=== PATIENT | male | born 1930 | race Caucasian/White ===

== ENCOUNTER 2016-12-10 21:34 | Inpatient (IN) | payer OTHER ==
[~2016-12-10] VITALS: Ht 180.3 cm; Wt 62.5 kg
[~2016-12-10 21:34] MED LIST: ADVAIR HFA120 INHALA IH; ALBUTEROL SULF8.5 GM IH; ALBUTEROL2.5 MG/3 M IH; AMBIEN5 MG PO; ANORO ELLIPTA1 EACH IH; AZITHROMYCIN250 MG PO; BENADRYL25 MG PO; CEFUROXIME500 MG PO; CEPHALEXIN500 MG PO; COUMADIN2.5 MG PO; COUMADIN5 MG PO; CYANOCOBALAM1000 MCG PO; DESOXIMETASONE TP; FOLIC ACID1 MG PO; FUROSEMIDE20 MG PO; IMDUR30 MG PO; IMDUR60 MG PO; ISOSORBIDE DINI30 MG; ISOSORBIDE DINI30 MG PO; LABETALOL HCL100 MG; LABETALOL HCL100 MG PO; LABETALOL HCL200 MG PO; LEVAQUIN500 MG PO; Lasix PO; Levaquin PO; NORVASC2.5 MG PO; Normodyne,Trandate PO; PRADAXA75 MG; PRADAXA75 MG PO; PREDNISONE10 MG PO; PROTONIX40 MG PO; PROVENTIL HFA6.7 GM IH; Protonix PO; SPIRIVA1 INHALATI; SPIRIVA1 INHALATI IH; Tylenol PM PO; ULORIC40 MG PO; VALISONE TP; VIT D3; VITAMIN B12 PO; VITAMIN B12-FO1 EACH PO; VITAMIN D1000 UNIT PO; VITAMIN D31000 UNI2 PO; WARFARIN PO; WARFARIN SODIUM5 MG PO; ZOLPIDEM TARTRAT5 MG PO; Zocor PO; [UNRECOGNIZED DRUG - CODE]
[2016-12-10 22:10] LABS: EOSINOPHIL COUNT 0.3 K/uL (0-0.3); HEMATOCRIT 35.8 % (38.0-50.0); IMMATURE GRANULOCYTE (%) 0.2 % (0.0-0.7); IMMATURE GRANULOCYTE COUNT 0.2 K/uL; LYMPHOCYTE COUNT 0.7 K/uL (1.0-2.8); MCHC 33.2 G/DL (30.0-36.0); MCV 93.2 FL (86-99); MEAN PLAT.VOLUME 9.9 uM^3 (9.0-12.4); MONOCYTE (%) 8.4 % (3-12); MONOCYTE COUNT 0.7 K/uL (0-0.8); NEUTROPHIL (%) 79.4 % (45-76); NEUTROPHIL COUNT 6.6 K/uL (1.8-6.4); PLATELET COUNT 186 K/uL (156-360); RBC DIS.WIDTH-CV 13.3 % (11.8-14.6); RBC DIS.WIDTH-SD 43.3 % (39-53); RED BLOOD COUNT 3.84 M/uL (4.00-5.50); WHITE BLOOD COUNT 8.3 K/uL (4.1-10.2)
[2016-12-10 22:21] LABS: INTER. NORMALIZED RATIO 1.5; PTT 48.5 (25-32)
[2016-12-10 22:26] LABS: CHLORIDE 105 mEq/L (99-109); POTASSIUM 4.8 mEq/L (3.7-5.4); SODIUM 140 mEq/L (136-147)
[2016-12-10 22:27] LABS: MAGNESIUM 1.5 mg/dL (1.3-2.7)
[2016-12-10 22:28] LABS: GLUCOSE 109 mg/dL (70-99)
[2016-12-10 22:29] LABS: ANION GAP 12 MEQ/L (2-14)
[2016-12-10 22:32] LABS: GFR ESTIMATE (CALCULATED) 36 mL/min/; TROP-I INTERPRETATION NEGATIVE; TROPONIN-I 0.02 ng/mL (0.0-0.30); UREA NITROGEN (BUN) 49 mg/dL (9-23)
[2016-12-11] VITALS (9 sets, daily range): BP systolic 147–189; BP diastolic 68–86
[2016-12-11] MEDS ORDERED: PROAIR HFA8.5 GM IH (00:27)
[2016-12-11] MEDS ORDERED: DUONEB 2.5-0.5 M3 ML AEROSOL (00:27)
[2016-12-11 06:11] LABS: HEMATOCRIT 36.9 % (38.0-50.0); MCH 30.3 PG (29.0-34.0); MCHC 32.2 G/DL (30.0-36.0); MCV 93.9 FL (86-99); MEAN PLAT.VOLUME 10.2 uM^3 (9.0-12.4); PLATELET COUNT 184 K/uL (156-360); RBC DIS.WIDTH-CV 13.4 % (11.8-14.6); RBC DIS.WIDTH-SD 46.2 % (39-53); RED BLOOD COUNT 3.93 M/uL (4.00-5.50)
[2016-12-11 06:24] LABS: WHITE BLOOD COUNT 3.8 K/uL (4.1-10.2)
[2016-12-11 06:30] LABS: CHLORIDE 102 MEQ/L (99-109); GFR ESTIMATE (CALCULATED) 38 mL/min/; GLUCOSE 150 mg/dL (70-99); POTASSIUM 4.3 MEQ/L (3.7-5.4); SAMPLE HEMOLYSIS CHECK 0; SAMPLE ICTERIC CHECK 0; SAMPLE LIPEMIA CHECK 0; SODIUM 136 MEQ/L (136-147); UREA NITROGEN (BUN) 48 mg/dL (9-23)
[2016-12-11 06:31] LABS: ANION GAP 11 MEQ/L (2-14)
[2016-12-11 06:36] LABS: INTER. NORMALIZED RATIO 1.6; PROTHROMBIN TIME 16.2 (9.2-11.2)
[2016-12-11 11:38] LABS: INFLUENZA A VIRAL ANTIGEN NEGATIVE; INFLUENZA B VIRAL ANTIGEN NEGATIVE
[2016-12-12] VITALS (23 sets, daily range): BP systolic 89–224; BP diastolic 51–105
[2016-12-12 05:05] LABS: BASE EXCESS -1.3 mEq/L (-3 to +3); BICARBONATE 24.3 mEq/L (22-26); CARBOXY HGB 0.2 % (0-5); COMMENTS - BLOOD GASES C+A+; DEVICE NC; METHEMOGLOBIN 0.4 % (0-1.5); O2 FLOW 2 L/MIN; PCO2 43 mm Hg (35-45); PO2 67 mm Hg (80-100); SITE RR; pH 7.36 (7.35-7.45)
[2016-12-12 05:47] LABS: HEMATOCRIT 40.9 % (38.0-50.0); MCHC 34.2 G/DL (30.0-36.0); MCV 93.6 FL (86-99); MEAN PLAT.VOLUME 10.8 uM^3 (9.0-12.4); RBC DIS.WIDTH-CV 13.4 % (11.8-14.6); RBC DIS.WIDTH-SD 45.9 % (39-53); RED BLOOD COUNT 4.37 M/uL (4.00-5.50)
[2016-12-12 05:53] LABS: PLATELET COUNT 261 K/uL (156-360); WHITE BLOOD COUNT 11.3 K/uL (4.1-10.2)
[2016-12-12 05:57] LABS: ANION GAP 13 MEQ/L (2-14); CHLORIDE 103 MEQ/L (99-109); POTASSIUM 4.3 MEQ/L (3.7-5.4); SAMPLE HEMOLYSIS CHECK 0; SAMPLE ICTERIC CHECK 0; SAMPLE LIPEMIA CHECK 0; SODIUM 141 MEQ/L (136-147); TOTAL BILIRUBIN 0.5 MG/DL (0.0-1.0)
[2016-12-12 06:03] LABS: ALKALINE PHOSPHATASE 119 IU/L (3-129); GFR ESTIMATE (CALCULATED) 41 mL/min/; GLUCOSE 149 mg/dL (70-99); UREA NITROGEN (BUN) 54 mg/dL (9-23)
[2016-12-12 06:07] LABS: TROP-I INTERPRETATION NEGATIVE; TROPONIN-I 0.04 ng/mL (0.0-0.30)
[2016-12-12 06:09] LABS: INTER. NORMALIZED RATIO 1.9; PROTHROMBIN TIME 19.6 (9.2-11.2)
[2016-12-12 08:04] LABS: METH RESISTANT S AUREUS PCR POSITIVE (NEGATIVE)
[2016-12-12 08:09] LABS: PROBE CHECK PASS
[2016-12-12 08:53] LABS: MAGNESIUM 1.7 mg/dl (1.3-2.7)
[2016-12-12 15:35] LABS: BASE EXCESS 2.4 mEq/L (-3 to +3); BICARBONATE 27.2 mEq/L (22-26); CARBOXY HGB 0.1 % (0-5); COMMENTS - BLOOD GASES A+C+; DEVICE NC; METHEMOGLOBIN 0.5 % (0-1.5); O2 FLOW 3 L/MIN; PCO2 42 mm Hg (35-45); PO2 74 mm Hg (80-100); SITE RR; TOTAL RESP RATE 22 resp/min; pH 7.42 (7.35-7.45)
[2016-12-12 18:48] LABS: POINT-OF-CARE METER ID UU14162636
[2016-12-12 23:36] LABS: POINT-OF-CARE METER ID UU14174217
[2016-12-13] VITALS (24 sets, daily range): BP systolic 95–151; BP diastolic 46–90
[2016-12-13 05:10] LABS: POINT-OF-CARE METER ID UU14174217
[2016-12-13 06:00] LABS: EOSINOPHIL (%) 0 % (0-5); HEMATOCRIT 38.8 % (38.0-50.0); IMMATURE GRANULOCYTE (%) 0.2 % (0.0-0.7); LYMPHOCYTE COUNT 0.3 K/uL (1.0-2.8); MCH 30.6 PG (29.0-34.0); MCHC 32.5 G/DL (30.0-36.0); MCV 94.2 FL (86-99); MEAN PLAT.VOLUME 10.3 uM^3 (9.0-12.4); MONOCYTE COUNT 0.5 K/uL (0-0.8); NEUTROPHIL (%) 91.7 % (45-76); PLATELET COUNT 228 K/uL (156-360); RBC DIS.WIDTH-CV 13.6 % (11.8-14.6); RBC DIS.WIDTH-SD 47.2 % (39-53); RED BLOOD COUNT 4.12 M/uL (4.00-5.50); WHITE BLOOD COUNT 9.9 K/uL (4.1-10.2)
[2016-12-13 06:05] LABS: INTER. NORMALIZED RATIO 2.2; PROTHROMBIN TIME 23.1 (9.2-11.2)
[2016-12-13 06:16] LABS: ANION GAP 13 MEQ/L (2-14); CHLORIDE 105 MEQ/L (99-109); GLUCOSE 140 mg/dL (70-99); POTASSIUM 4.2 MEQ/L (3.7-5.4); SAMPLE HEMOLYSIS CHECK 0; SAMPLE ICTERIC CHECK 0; SAMPLE LIPEMIA CHECK 0; SODIUM 143 MEQ/L (136-147); UREA NITROGEN (BUN) 78 mg/dL (9-23)
[2016-12-13 06:17] LABS: GFR ESTIMATE (CALCULATED) 25 mL/min/; MAGNESIUM 2.6 mg/dl (1.3-2.7)
[2016-12-13 10:18] LABS: INTERNAL CONTROL VALID? YES
[2016-12-13 13:25] LABS: POINT-OF-CARE METER ID UU13113803
[2016-12-13 16:50] LABS: UR CREATININE CONCENTRATION 57.9 MG/DL
[2016-12-13 18:20] LABS: POINT-OF-CARE METER ID UU13113803
[2016-12-13 23:46] LABS: POINT-OF-CARE METER ID UU13113803
[2016-12-14] VITALS (20 sets, daily range): BP systolic 118–174; BP diastolic 54–100
[2016-12-14 06:02] LABS: POINT-OF-CARE METER ID UU13113803
[2016-12-14 06:20] LABS: INTER. NORMALIZED RATIO 3.3
[2016-12-14 06:26] LABS: DELETE MACHINE DIFF? YES
[2016-12-14 06:32] LABS: ANION GAP 11 MEQ/L (2-14); CHLORIDE 103 MEQ/L (99-109); GFR ESTIMATE (CALCULATED) 25 mL/min/; GLUCOSE 132 mg/dL (70-99); MAGNESIUM 2.8 mg/dl (1.3-2.7); SAMPLE HEMOLYSIS CHECK 0; SAMPLE ICTERIC CHECK 0; SAMPLE LIPEMIA CHECK 0; SODIUM 141 MEQ/L (136-147); UREA NITROGEN (BUN) 93 mg/dL (9-23)
[2016-12-14 06:47] LABS: PROTHROMBIN TIME 34.8 (9.2-11.2)
[2016-12-14 08:04] LABS: ABS NEUTROPHIL COUNT 10.25; ANISOCYTOSIS 1+; MCH 31.8 PG (29.0-34.0); MCHC 33.3 G/DL (30.0-36.0); MCV 95.5 FL (86-99); MEAN PLAT.VOLUME 10.6 uM^3 (9.0-12.4); PLAT.SUFFICIENCY ADEQUATE; PLATELET COUNT 205 K/uL (156-360); RBC DIS.WIDTH-CV 13.4 % (11.8-14.6); RBC DIS.WIDTH-SD 47.2 % (39-53); USER ID STC; WHITE BLOOD COUNT 11.3 K/uL (4.1-10.2)
[2016-12-14 12:23] LABS: POINT-OF-CARE METER ID UU13113803
[2016-12-15] VITALS (14 sets, daily range): BP systolic 118–174; BP diastolic 58–99
[2016-12-15 06:12] LABS: HEMATOCRIT 39.1 % (38.0-50.0); MCH 30.6 PG (29.0-34.0); MCHC 32.2 G/DL (30.0-36.0); MCV 94.9 FL (86-99); MEAN PLAT.VOLUME 10.6 uM^3 (9.0-12.4); PLATELET COUNT 187 K/uL (156-360); RBC DIS.WIDTH-CV 13.2 % (11.8-14.6); RBC DIS.WIDTH-SD 45.8 % (39-53); RED BLOOD COUNT 4.12 M/uL (4.00-5.50); WHITE BLOOD COUNT 8.6 K/uL (4.1-10.2)
[2016-12-15 06:23] LABS: INTER. NORMALIZED RATIO 3.6; PROTHROMBIN TIME 38.4 (9.2-11.2)
[2016-12-15 06:42] LABS: ANION GAP 12 MEQ/L (2-14); CHLORIDE 101 MEQ/L (99-109); GLUCOSE 140 mg/dL (70-99); MAGNESIUM 2.5 mg/dl (1.3-2.7); SAMPLE HEMOLYSIS CHECK 1; SAMPLE ICTERIC CHECK 0; SAMPLE LIPEMIA CHECK 0; SODIUM 137 MEQ/L (136-147); UREA NITROGEN (BUN) 86 mg/dL (9-23)
[2016-12-15 06:44] LABS: GFR ESTIMATE (CALCULATED) 32 mL/min/; POTASSIUM 5.1 MEQ/L (3.7-5.4)
[2016-12-15 07:03] LABS: ABS NEUTROPHIL COUNT 7.59; ANISOCYTOSIS 1+; PLAT.SUFFICIENCY ADEQUATE; USER ID CCL
[2016-12-15 07:55] LABS: DELETE MACHINE DIFF? YES
[2016-12-15 08:40] LABS: POTASSIUM 4.4 MEQ/L (3.7-5.4)
[2016-12-15] MEDS ORDERED: AMOX TR-K CLV1 EAC3 PO (12:15)
[2016-12-16] VITALS (9 sets, daily range): BP systolic 117–165; BP diastolic 55–89
[2016-12-16 06:33] LABS: EOSINOPHIL (%) 0 % (0-5); HEMATOCRIT 41.2 % (38.0-50.0); IMMATURE GRANULOCYTE (%) 0.7 % (0.0-0.7); IMMATURE GRANULOCYTE COUNT 0.1 K/uL; LYMPHOCYTE COUNT 1.4 K/uL (1.0-2.8); MCH 29.8 PG (29.0-34.0); MCHC 32.3 G/DL (30.0-36.0); MCV 92.2 FL (86-99); MEAN PLAT.VOLUME 10.4 uM^3 (9.0-12.4); MONOCYTE (%) 2.2 % (3-12); MONOCYTE COUNT 0.3 K/uL (0-0.8); NEUTROPHIL (%) 85.5 % (45-76); NEUTROPHIL COUNT 10.6 K/uL (1.8-6.4); PLATELET COUNT 240 K/uL (156-360); RBC DIS.WIDTH-SD 43.5 % (39-53); RED BLOOD COUNT 4.47 M/uL (4.00-5.50)
[2016-12-16 06:36] LABS: WHITE BLOOD COUNT 12.4 K/uL (4.1-10.2)
[2016-12-16 06:37] LABS: ANION GAP 10 MEQ/L (2-14); CHLORIDE 104 MEQ/L (99-109); GFR ESTIMATE (CALCULATED) 38 mL/min/; GLUCOSE 122 mg/dL (70-99); MAGNESIUM 2.4 mg/dl (1.3-2.7); POTASSIUM 4.5 MEQ/L (3.7-5.4); SAMPLE HEMOLYSIS CHECK 0; SAMPLE ICTERIC CHECK 0; SAMPLE LIPEMIA CHECK 0; SODIUM 140 MEQ/L (136-147); UREA NITROGEN (BUN) 75 mg/dL (9-23)
[2016-12-16 06:39] LABS: INTER. NORMALIZED RATIO 2.6; PROTHROMBIN TIME 27.8 (9.2-11.2)
[2016-12-17] VITALS: BP 169/92
[2016-12-17 04:00] VITALS: BP 154/69
[2016-12-17 06:20] LABS: MCH 30.3 PG (29.0-34.0); MCHC 32.9 G/DL (30.0-36.0); MCV 92.1 FL (86-99); MEAN PLAT.VOLUME 10.2 uM^3 (9.0-12.4); PLATELET COUNT 249 K/uL (156-360); RBC DIS.WIDTH-CV 13.1 % (11.8-14.6); RBC DIS.WIDTH-SD 43.9 % (39-53); RED BLOOD COUNT 4.56 M/uL (4.00-5.50); WHITE BLOOD COUNT 14.9 K/uL (4.1-10.2)
[2016-12-17 06:37] LABS: EOSINOPHIL (%) 0 % (0-5); IMMATURE GRANULOCYTE (%) 1.4 % (0.0-0.7); IMMATURE GRANULOCYTE COUNT 0.2 K/uL; LYMPHOCYTE COUNT 2.1 K/uL (1.0-2.8); MONOCYTE (%) 3.9 % (3-12); MONOCYTE COUNT 0.6 K/uL (0-0.8); NEUTROPHIL (%) 80.6 % (45-76)
[2016-12-17 06:38] LABS: PROTHROMBIN TIME 20.8 (9.2-11.2)
[2016-12-17 06:45] LABS: ANION GAP 8 MEQ/L (2-14); CHLORIDE 106 MEQ/L (99-109); GFR ESTIMATE (CALCULATED) 44 mL/min/; GLUCOSE 92 mg/dL (70-99); MAGNESIUM 2.2 mg/dl (1.3-2.7); POTASSIUM 4.8 MEQ/L (3.7-5.4); SAMPLE HEMOLYSIS CHECK 0; SAMPLE ICTERIC CHECK 0; SAMPLE LIPEMIA CHECK 0; SODIUM 141 MEQ/L (136-147); UREA NITROGEN (BUN) 69 mg/dL (9-23)
[2016-12-17 08:00] VITALS: BP 169/89
[2016-12-17] MEDS ORDERED: PREDNISONE20 MG PO (11:55)
[2016-12-17 13:30] VITALS: BP 126/77
== END 2016-12-17 14:20 | DRG 190 ==
LOC: EME → EDBD 21:34 → EME 21:34 → EDOF 12-11 02:04 → 5WEST 12-11 03:05 → 4WEST 12-11 11:09 → 5WEST 12-11 11:09 → 5EAST 12-11 18:05 → 4WEST 12-12 05:15
PROVIDERS: Emergency Medicine; Hospitalist; Internal Medicine; Internal Medicine Critical Care Medicine; Internal Medicine Nephrology; Physician Assistant Medical
PROC: 5A09358 Assistance with Respiratory Ventilation, Less than 24 Consecutive Hours, Intermittent Positive Airway Pressure (ICD-10-PCS; principal; 2016-12-12)
DX: J44.1 Chronic obstructive pulmonary disease with (acute) exacerbation (principal); J96.02 Acute respiratory failure with hypercapnia; I42.9 Cardiomyopathy, unspecified; F10.239 Alcohol dependence with withdrawal, unspecified; N17.9 Acute kidney failure, unspecified; T50.2X5A Adverse effect of carbonic-anhydrase inhibitors, benzothiadiazides and other diuretics, initial encounter; E86.0 Dehydration; J44.0 Chronic obstructive pulmonary disease with (acute) lower respiratory infection; J20.9 Acute bronchitis, unspecified; I12.9 Hypertensive chronic kidney disease with stage 1 through stage 4 chronic kidney disease, or unspecified chronic kidney disease; N18.3 Chronic kidney disease, stage 3 (moderate); I25.10 Atherosclerotic heart disease of native coronary artery without angina pectoris; I48.2 Chronic atrial fibrillation; F03.90 Unspecified dementia, unspecified severity, without behavioral disturbance, psychotic disturbance, mood disturbance, and anxiety; I25.2 Old myocardial infarction; Z79.01 Long term (current) use of anticoagulants; Z87.891 Personal history of nicotine dependence; Z85.038 Personal history of other malignant neoplasm of large intestine; Z85.51 Personal history of malignant neoplasm of bladder; Z93.6 Other artificial openings of urinary tract status
CPT/HCPCS: 36600; 71010; 80048; 80053; 82570; 82803; 82948; 83605; 83735; 83880; 84100; 84156; 84300; 84484; 84999; 85025; 85027; 85610; 85730; 87070; 87205; 87449; 87502; 87641; 93005; 94002; 94003; 94640; 94640 76; 94644; 94660; 94760; 94799; 97530 GO; 97530 GP; 99202; 99281; 99285; C9113; J0360; J0456; J0696; J1100; J1630; J1815; J1940; J2060; J2920; J2930; J3475; J7050; J7120; J7512; J7644

== ENCOUNTER 2017-02-27 08:48 | Emergency (ER) | payer OTHER ==
[~2017-02-27] VITALS: Ht 177.8 cm; Wt 68.0 kg
[~2017-02-27 08:48] MED LIST changes: +AMOX TR-K CLV1 EAC3 PO; +DUONEB 2.5-0.5 M3 ML AEROSOL; +PREDNISONE20 MG PO; +PROAIR HFA8.5 GM IH
[2017-02-27 10:26] LABS: EOSINOPHIL COUNT 0.2 K/uL (0-0.3); IMMATURE GRANULOCYTE (%) 0.5 % (0.0-0.7); INSTRUMENT ABS NEUTROPHIL CT 4.9 K/uL; LYMPHOCYTE COUNT 0.7 K/uL (1.0-2.8); MCH 30.2 PG (29.0-34.0); MCHC 31.5 G/DL (30.0-36.0); MEAN PLAT.VOLUME 9.8 uM^3 (9.0-12.4); MONOCYTE (%) 10.6 % (3-12); MONOCYTE COUNT 0.7 K/uL (0-0.8); NEUTROPHIL (%) 74.1 % (45-76); NEUTROPHIL COUNT 4.9 K/uL (1.8-6.4); PLATELET COUNT 204 K/uL (156-360); RBC DIS.WIDTH-CV 14.3 % (11.8-14.6); RBC DIS.WIDTH-SD 50.3 % (39-53); RED BLOOD COUNT 3.54 M/uL (4.00-5.50); WHITE BLOOD COUNT 6.6 K/uL (4.1-10.2)
[2017-02-27 10:35] LABS: CHLORIDE 108 mEq/L (99-109); POTASSIUM 4.6 mEq/L (3.7-5.4); SODIUM 141 mEq/L (136-147)
[2017-02-27 10:36] LABS: INTER. NORMALIZED RATIO 1.9; PROTHROMBIN TIME 19.6 (9.2-11.2); PTT 41.8 (25-32)
[2017-02-27 10:37] LABS: GLUCOSE 75 mg/dL (70-99)
[2017-02-27 10:38] LABS: ANION GAP 11 MEQ/L (2-14)
[2017-02-27 10:40] LABS: GFR ESTIMATE (CALCULATED) 32 mL/min/
[2017-02-27 10:41] LABS: UREA NITROGEN (BUN) 66 mg/dL (9-23)
[2017-02-27 10:47] LABS: TROP-I INTERPRETATION NEGATIVE; TROPONIN-I 0.02 ng/mL (0.0-0.30)
[2017-02-27 11:15] LABS: ADD MIUA? YES; BILIRUBIN NEGATIVE; BLOOD NEGATIVE; COLOR YELLOW ((YELLOW)); GLUCOSE (STRIP) NEGATIVE; KETONES NEGATIVE; LEUKOCYTES LARGE; NITRITE NEGATIVE; PROTEIN (STRIP) 30; SPECIFIC GRAVITY 1.011 (1.000-1.030); UROBILINOGEN 0.2 MG/DL (0.2-1.0)
[2017-02-27 11:32] LABS: BACTERIA 1+ /HPF; EPITHELIAL CELLS RARE /HPF; HYALINE CASTS TNTC /LPF; MUCUS TRACE /LPF; RED BLOOD CELLS 0-5 /HPF (0-5); UCUL ADDED? NO; WHITE BLOOD CELLS 15-20 /HPF (0-5)
[2017-02-27] MEDS ORDERED: ASCORBIC ACID500 M3 PO (12:55)
[2017-02-27] MEDS ORDERED: AMBIEN5 MG PO (12:56)
[2017-02-27] MEDS ORDERED: PROTONIX40 MG PO (12:56)
[2017-02-27 13:01] LABS: Estimated Average Glucose 111 mg/dL (70-123); HEMOGLOBIN A1c (GLYCOHEMOGLOB) 5.5 % HGB (Below 5.7)
[2017-02-27 13:02] LABS: SAMPLE HEMOLYSIS CHECK 0; SAMPLE ICTERIC CHECK 0; SAMPLE LIPEMIA CHECK 1
[2017-02-27 13:08] LABS: HDL CHOLESTEROL 48 MG/DL (Desirable>=40); LDL CHOLESTEROL 63 mg/dL (Desirable<100); NON-HDL CHOLESTEROL 92 mg/dL (Desirable<160); TOTAL CHOLESTEROL 140 mg/dL (Desirable<200); TRIGLYCERIDES 146 MG/DL (Normal: <150)
[2017-02-27 14:31] VITALS: BP 163/74
[2017-02-27 17:50] LABS: METH RESISTANT S AUREUS PCR NEGATIVE (NEGATIVE)
[2017-02-27 17:52] LABS: PROBE CHECK PASS; SPECIMEN PROCESSING CONTROL PASS
[2017-02-27 19:05] VITALS: BP 142/68
[2017-02-27 23:00] VITALS: BP 152/64
[2017-02-28 03:00] VITALS: BP 138/62
[2017-02-28 05:57] LABS: ALKALINE PHOSPHATASE 85 IU/L (3-129); ANION GAP 8 MEQ/L (2-14); CHLORIDE 107 MEQ/L (99-109); GFR ESTIMATE (CALCULATED) 30 mL/min/; GLUCOSE 90 mg/dL (70-99); POTASSIUM 4.2 MEQ/L (3.7-5.4); SAMPLE HEMOLYSIS CHECK 0; SAMPLE ICTERIC CHECK 0; SAMPLE LIPEMIA CHECK 0; SODIUM 140 MEQ/L (136-147); TOTAL BILIRUBIN 0.6 MG/DL (0.0-1.0); UREA NITROGEN (BUN) 66 mg/dL (9-23)
[2017-02-28 05:58] LABS: HEMATOCRIT 32.4 % (38.0-50.0); MCH 30.6 PG (29.0-34.0); MCHC 31.8 G/DL (30.0-36.0); MCV 96.1 FL (86-99); MEAN PLAT.VOLUME 10.6 uM^3 (9.0-12.4); PLATELET COUNT 178 K/uL (156-360); RBC DIS.WIDTH-CV 14.2 % (11.8-14.6); RBC DIS.WIDTH-SD 50.1 % (39-53); RED BLOOD COUNT 3.37 M/uL (4.00-5.50); WHITE BLOOD COUNT 6.2 K/uL (4.1-10.2)
[2017-02-28 06:02] LABS: INTER. NORMALIZED RATIO 1.9; PROTHROMBIN TIME 19.2 (9.2-11.2)
[2017-02-28 08:00] VITALS: BP 172/72
[2017-02-28 11:15] VITALS: BP 129/63
== END 2017-02-28 14:26 | disposition home or self-care (01) ==
LOC: EME 08:48 → EDOF 11:36 → 5WEST 14:15
PROVIDERS: Emergency Medicine; Nurse Practitioner Adult Health; Student in an Organized Health Care Education/Training Program
DX: G45.9 Transient cerebral ischemic attack, unspecified (principal); J44.9 Chronic obstructive pulmonary disease, unspecified; I13.0 Hypertensive heart and chronic kidney disease with heart failure and stage 1 through stage 4 chronic kidney disease, or unspecified chronic kidney disease; I50.9 Heart failure, unspecified; N18.3 Chronic kidney disease, stage 3 (moderate); I25.2 Old myocardial infarction; Z87.891 Personal history of nicotine dependence; I42.9 Cardiomyopathy, unspecified; D64.9 Anemia, unspecified; Z79.01 Long term (current) use of anticoagulants; I25.10 Atherosclerotic heart disease of native coronary artery without angina pectoris; Z85.038 Personal history of other malignant neoplasm of large intestine; Z85.51 Personal history of malignant neoplasm of bladder; I45.10 Unspecified right bundle-branch block; N39.0 Urinary tract infection, site not specified; E86.0 Dehydration; I48.2 Chronic atrial fibrillation; R29.810 Facial weakness
CPT/HCPCS: 70450; 70551; 80048; 80053; 80061; 81003; 83036; 84484; 85025; 85027; 85610; 85730; 87641; 93005; 93880; 94640; 94640 76; 99202; 99281; 99285; G0378; J0696; J7050

== ENCOUNTER 2017-05-01 06:53 | Emergency (ER) | payer OTHER ==
[~2017-05-01] VITALS: Ht 180.3 cm; Wt 67.2 kg
[~2017-05-01 06:53] MED LIST changes: +ASCORBIC ACID500 M3 PO
[2017-05-01] MEDS ORDERED: RANITIDINE HCL150 MG PO (07:58)
[2017-05-01 08:10] LABS: MCHC 32.1 G/DL (30.0-36.0); MCV 96.5 FL (86-99); MEAN PLAT.VOLUME 10.6 uM^3 (9.0-12.4); PLATELET COUNT 143 K/uL (156-360); RBC DIS.WIDTH-CV 13.9 % (11.8-14.6); RBC DIS.WIDTH-SD 49.1 % (39-53); RED BLOOD COUNT 3.42 M/uL (4.00-5.50); WHITE BLOOD COUNT 5.6 K/uL (4.1-10.2)
[2017-05-01 08:22] LABS: INTER. NORMALIZED RATIO 1.7; PROTHROMBIN TIME 17.3 (9.2-11.2); PTT 41.1 (25-32)
[2017-05-01 08:28] LABS: CHLORIDE 113 mEq/L (99-109); POTASSIUM 4.9 mEq/L (3.7-5.4); SODIUM 140 mEq/L (136-147)
[2017-05-01 08:30] LABS: GLUCOSE 96 mg/dL (70-99)
[2017-05-01 08:31] LABS: ANION GAP 9 MEQ/L (2-14)
[2017-05-01 08:32] LABS: TOTAL BILIRUBIN 0.6 mg/dL (0.0-1.0)
[2017-05-01 08:34] LABS: ALKALINE PHOSPHATASE 117 IU/L (3-129); GFR ESTIMATE (CALCULATED) 38 mL/min/
[2017-05-01 08:35] LABS: UREA NITROGEN (BUN) 54 mg/dL (9-23)
[2017-05-01 08:58] LABS: TROP-I INTERPRETATION NEGATIVE; TROPONIN-I 0.01 ng/mL (0.0-0.30)
[2017-05-01] MEDS ORDERED: LEVAQUIN750 MG PO (09:30)
[2017-05-01 10:01] VITALS: BP 154/82
== END 2017-05-01 10:02 | disposition home or self-care (01) ==
LOC: EME 06:53
PROVIDERS: Nurse Practitioner Family
DX: J44.0 Chronic obstructive pulmonary disease with (acute) lower respiratory infection (principal); J18.9 Pneumonia, unspecified organism; J44.1 Chronic obstructive pulmonary disease with (acute) exacerbation; I10 Essential (primary) hypertension; I25.2 Old myocardial infarction; Z79.01 Long term (current) use of anticoagulants; Z87.891 Personal history of nicotine dependence
CPT/HCPCS: 71020; 80053; 83880; 84484; 85027; 85610; 85730; 93005; 94640; 99281; 99284; J7030

== ENCOUNTER 2017-06-09 09:39 | Emergency (ER) | payer OTHER ==
[~2017-06-09] VITALS: Ht 180.3 cm; Wt 68.8 kg
[~2017-06-09 09:39] MED LIST changes: +LEVAQUIN750 MG PO; +RANITIDINE HCL150 MG PO
[2017-06-09 12:02] LABS: EOSINOPHIL (%) 3.2 % (0-5); EOSINOPHIL COUNT 0.2 K/uL (0-0.3); HEMATOCRIT 31.1 % (38.0-50.0); IMMATURE GRANULOCYTE (%) 0.5 % (0.0-0.7); INSTRUMENT ABS NEUTROPHIL CT 3.9 K/uL; LYMPHOCYTE COUNT 0.7 K/uL (1.0-2.8); MCH 30.6 PG (29.0-34.0); MCHC 31.8 G/DL (30.0-36.0); MEAN PLAT.VOLUME 10.5 uM^3 (9.0-12.4); MONOCYTE (%) 14.4 % (3-12); MONOCYTE COUNT 0.8 K/uL (0-0.8); NEUTROPHIL (%) 68.9 % (45-76); NEUTROPHIL COUNT 3.9 K/uL (1.8-6.4); PLATELET COUNT 179 K/uL (156-360); RBC DIS.WIDTH-CV 14.2 % (11.8-14.6); RBC DIS.WIDTH-SD 49.9 % (39-53); RED BLOOD COUNT 3.24 M/uL (4.00-5.50); WHITE BLOOD COUNT 5.6 K/uL (4.1-10.2)
[2017-06-09 12:13] LABS: INTER. NORMALIZED RATIO 1.7; PROTHROMBIN TIME 19.1 SEC (10.2-12.9)
[2017-06-09 12:19] LABS: CHLORIDE 111 mEq/L (99-109); POTASSIUM 5.1 mEq/L (3.7-5.4); SODIUM 142 mEq/L (136-147)
[2017-06-09 12:21] LABS: GLUCOSE 85 mg/dL (70-99)
[2017-06-09 12:22] LABS: ANION GAP 8 MEQ/L (2-14)
[2017-06-09 12:25] LABS: GFR ESTIMATE (CALCULATED) 38 mL/min/; TROP-I INTERPRETATION NEGATIVE; TROPONIN-I 0.02 ng/mL (0.0-0.30)
[2017-06-09 12:26] LABS: UREA NITROGEN (BUN) 56 mg/dL (9-23)
[2017-06-09 15:13] LABS: TROP-I INTERPRETATION NEGATIVE; TROPONIN-I 0.03 ng/mL (0.0-0.30)
[2017-06-09 15:40] VITALS: BP 149/65
== END 2017-06-09 15:41 | disposition home or self-care (01) ==
LOC: EME 09:39
PROVIDERS: Emergency Medicine
DX: J44.1 Chronic obstructive pulmonary disease with (acute) exacerbation (principal); I48.91 Unspecified atrial fibrillation; J90 Pleural effusion, not elsewhere classified; I12.9 Hypertensive chronic kidney disease with stage 1 through stage 4 chronic kidney disease, or unspecified chronic kidney disease; N18.9 Chronic kidney disease, unspecified; Z79.01 Long term (current) use of anticoagulants; Z86.14 Personal history of Methicillin resistant Staphylococcus aureus infection; Z85.038 Personal history of other malignant neoplasm of large intestine; Z85.51 Personal history of malignant neoplasm of bladder; Z87.891 Personal history of nicotine dependence
CPT/HCPCS: 71010; 80048; 83880; 84484; 85025; 85610; 85730; 93005; 94640; 99281; 99284

== ENCOUNTER 2017-09-18 08:36 | Observation (INO) | payer OTHER ==
[~2017-09-18] VITALS: Ht 180.3 cm; Wt 66.8 kg
[2017-09-18 09:26] LABS: HEMATOCRIT 33.3 % (38.0-50.0); MCHC 32.7 G/DL (30.0-36.0); MCV 97.7 FL (86-99); MEAN PLAT.VOLUME 10.5 uM^3 (9.0-12.4); PLATELET COUNT 165 K/uL (156-360); RBC DIS.WIDTH-CV 14.2 % (11.8-14.6); RBC DIS.WIDTH-SD 51.5 % (39-53); RED BLOOD COUNT 3.41 M/uL (4.00-5.50); WHITE BLOOD COUNT 9.5 K/uL (4.1-10.2)
[2017-09-18 09:35] LABS: CHLORIDE 108 mEq/L (99-109); POTASSIUM 4.5 mEq/L (3.7-5.4); SODIUM 140 mEq/L (136-147)
[2017-09-18 09:37] LABS: GLUCOSE 103 mg/dL (70-99)
[2017-09-18 09:38] LABS: ANION GAP 11 MEQ/L (2-14)
[2017-09-18 09:41] LABS: GFR ESTIMATE (CALCULATED) 29 mL/min/
[2017-09-18 09:42] LABS: UREA NITROGEN (BUN) 61 mg/dL (9-23)
[2017-09-18 09:51] LABS: PTT 39.3 SEC (25-37)
[2017-09-18] MEDS ORDERED: BYSTOLIC10 MG PO (14:56)
[2017-09-18 16:30] VITALS: BP 131/63
[2017-09-18 18:44] VITALS: BP 158/68
[2017-09-18 22:55] VITALS: BP 142/63
[2017-09-19 03:48] VITALS: BP 150/68
[2017-09-19 06:09] LABS: INTER. NORMALIZED RATIO 2.6; PROTHROMBIN TIME 29.6 SEC (10.2-12.9)
[2017-09-19 06:49] LABS: ANION GAP 12 MEQ/L (2-14); CHLORIDE 108 MEQ/L (99-109); GFR ESTIMATE (CALCULATED) 32 mL/min/; GLUCOSE 115 mg/dL (70-99); POTASSIUM 4.9 MEQ/L (3.7-5.4); SAMPLE HEMOLYSIS CHECK 0; SAMPLE ICTERIC CHECK 0; SAMPLE LIPEMIA CHECK 0; SODIUM 142 MEQ/L (136-147); UREA NITROGEN (BUN) 62 mg/dL (9-23)
[2017-09-19 07:37] VITALS: BP 139/65
[2017-09-19 09:32] LABS: URIC ACID 10.4 mg/dL (3.1-9.2)
[2017-09-19] MEDS ORDERED: PREDNISONE10 MG PO (10:22)
[2017-09-19] MEDS ORDERED: AUGMENTIN875 MG PO (10:23)
[2017-09-19] MEDS ORDERED: ULORIC40 MG PO (10:25)
== END 2017-09-19 12:20 | disposition home or self-care (01) ==
LOC: EME 08:36 → EDOF 13:43 → ENRESERV 13:45 → 5EAST 15:47 → ENPENDDIS 09-19 → 5EAST 09-19 12:20
PROVIDERS: Emergency Medicine; Family Medicine
DX: J44.1 Chronic obstructive pulmonary disease with (acute) exacerbation (principal); J44.0 Chronic obstructive pulmonary disease with (acute) lower respiratory infection; J20.9 Acute bronchitis, unspecified; M10.9 Gout, unspecified; M54.2 Cervicalgia; I48.91 Unspecified atrial fibrillation; Z79.01 Long term (current) use of anticoagulants; I12.9 Hypertensive chronic kidney disease with stage 1 through stage 4 chronic kidney disease, or unspecified chronic kidney disease; N18.3 Chronic kidney disease, stage 3 (moderate); I25.10 Atherosclerotic heart disease of native coronary artery without angina pectoris; Z87.01 Personal history of pneumonia (recurrent); Z85.038 Personal history of other malignant neoplasm of large intestine; Z85.51 Personal history of malignant neoplasm of bladder; Z90.49 Acquired absence of other specified parts of digestive tract; Z93.3 Colostomy status; D64.9 Anemia, unspecified; I25.2 Old myocardial infarction
CPT/HCPCS: 71020; 80048; 83880; 84550; 85027; 85610; 85730; 87040; 93005; 94640; 94640 76; 99202; 99281; 99285; G0378; J1940; J2270; J7512

== ENCOUNTER 2017-12-30 10:21 | Inpatient (IN) | payer OTHER ==
[~2017-12-30] VITALS: Ht 180.3 cm; Wt 67.2 kg
[~2017-12-30 10:21] MED LIST changes: +AUGMENTIN875 MG PO; +BYSTOLIC10 MG PO
[2017-12-30 11:01] LABS: BASOPHIL (%) 0.7 % (0-1); EOSINOPHIL COUNT 0.2 K/uL (0-0.3); HEMATOCRIT 25.6 % (38.0-50.0); HEMOGLOBIN 8.3 G/DL (12.5-16.6); IMMATURE GRANULOCYTE (%) 0.4 % (0.0-0.7); LYMPHOCYTE (%) 10.9 % (15-42); LYMPHOCYTE COUNT 0.6 K/uL (1.0-2.8); MCHC 32.4 G/DL (30.0-36.0); MCV 98.8 FL (86-99); MONOCYTE (%) 19.1 % (3-12); MONOCYTE COUNT 1.1 K/uL (0-0.8); NEUTROPHIL (%) 64.9 % (45-76); NEUTROPHIL COUNT 3.6 K/uL (1.8-6.4); PLATELET COUNT 192 K/uL (156-360); RBC DIS.WIDTH-CV 14.2 % (11.8-14.6); RBC DIS.WIDTH-SD 51.5 % (39-53); RED BLOOD COUNT 2.59 M/uL (4.00-5.50); WHITE BLOOD COUNT 5.5 K/uL (4.1-10.2)
[2017-12-30 11:07] LABS: INTER. NORMALIZED RATIO 1.7
[2017-12-30 11:09] LABS: PTT 35.3 SEC (25-37)
[2017-12-30 11:12] LABS: CHLORIDE 115 mEq/L (99-109); POTASSIUM 4.5 mEq/L (3.7-5.4); SODIUM 142 mEq/L (136-147)
[2017-12-30 11:14] LABS: GLUCOSE 87 mg/dL (70-99)
[2017-12-30 11:18] LABS: CREATININE 2.5 mg/dL (0.6-1.3); GFR ESTIMATE (CALCULATED) 26 mL/min/ (58.99-99999)
[2017-12-30 11:19] LABS: UREA NITROGEN (BUN) 83 mg/dL (9-23)
[2017-12-30 11:22] LABS: TROP-I INTERPRETATION NEGATIVE; TROPONIN-I 0.03 ng/mL (0.0-0.30)
[2017-12-30] MEDS ORDERED: ULORIC40 MG PO (12:53)
[2017-12-30] MEDS ORDERED: ALBUTEROL2.5 MG/3 M IH (12:59)
[2017-12-30] MEDS ORDERED: DOXAZOSIN MESYLA2 MG PO (13:00)
[2017-12-30 16:40] VITALS: BP 159/72
[2017-12-31] VITALS (8 sets, daily range): BP systolic 142–166; BP diastolic 63–81
[2017-12-31 06:46] LABS: BASOPHIL (%) 0.5 % (0-1); EOSINOPHIL (%) 3.8 % (0-5); EOSINOPHIL COUNT 0.2 K/uL (0-0.3); IMMATURE GRANULOCYTE (%) 0.4 % (0.0-0.7); LYMPHOCYTE (%) 9.5 % (15-42); LYMPHOCYTE COUNT 0.5 K/uL (1.0-2.8); MCH 30.7 PG (29.0-34.0); MCHC 30.8 G/DL (30.0-36.0); MCV 99.6 FL (86-99); MONOCYTE (%) 16.5 % (3-12); MONOCYTE COUNT 0.9 K/uL (0-0.8); NEUTROPHIL (%) 69.3 % (45-76); NEUTROPHIL COUNT 3.9 K/uL (1.8-6.4); PLATELET COUNT 203 K/uL (156-360); RBC DIS.WIDTH-CV 14.3 % (11.8-14.6); RED BLOOD COUNT 2.61 M/uL (4.00-5.50); WHITE BLOOD COUNT 5.6 K/uL (4.1-10.2)
[2017-12-31 07:04] LABS: CHLORIDE 113 MEQ/L (99-109); CREATININE 2.4 MG/DL (0.6-1.3); GFR ESTIMATE (CALCULATED) 27 mL/min/ (58.99-99999); GLUCOSE 92 mg/dL (70-99); POTASSIUM 4.4 MEQ/L (3.7-5.4); SODIUM 145 MEQ/L (136-147); UREA NITROGEN (BUN) 69 mg/dL (9-23)
[2017-12-31 10:08] LABS: INTER. NORMALIZED RATIO 2.1
[2018-01-01 00:29] LABS: BASE EXCESS -4.4 mEq/L (-3 to +3); CARBOXY HGB 1.6 % (0-5); METHEMOGLOBIN 0.9 % (0-1.5); PCO2 33 mm Hg (35-45); PO2 72 mm Hg (80-100); SITE LB; pH 7.39 (7.35-7.45)
[2018-01-01 00:30] LABS: COMMENTS - BLOOD GASES C+; DEVICE NC
[2018-01-01 00:38] LABS: O2 FLOW 1 L/MIN
[2018-01-01 01:31] LABS: TROP-I INTERPRETATION NEGATIVE; TROPONIN-I 0.04 ng/mL (0.0-0.30)
[2018-01-01 06:51] LABS: INTER. NORMALIZED RATIO 2.2
[2018-01-01 08:10] VITALS: BP 172/73
[2018-01-01 12:33] LABS: STOOL OCCULT BLD 1ST SPECIMEN POSITIVE
[2018-01-01 12:45] VITALS: BP 140/70
[2018-01-01 15:53] LABS: ABSOLUTE RETICULOCYTE CT. 0.1 M/uL (0.02-0.08); IMM.RETIC FRACTION 17.6 % (3-19); RETIC HGB EQUIVALENT 23.7 (28-36)
[2018-01-01 17:53] LABS: RETICULOCYTE COUNT 2.4 % (0.5-1.8)
[2018-01-01 18:29] LABS: HEMATOCRIT 29.5 % (38.0-50.0); HEMOGLOBIN 9.4 G/DL (12.5-16.6); MCH 30.9 PG (29.0-34.0); MCHC 31.9 G/DL (30.0-36.0); PLATELET COUNT 226 K/uL (156-360); RBC DIS.WIDTH-CV 14.5 % (11.8-14.6); RBC DIS.WIDTH-SD 51.4 % (39-53); RED BLOOD COUNT 3.04 M/uL (4.00-5.50); WHITE BLOOD COUNT 6.4 K/uL (4.1-10.2)
[2018-01-01 18:56] VITALS: BP 156/67
[2018-01-01 22:46] VITALS: BP 160/76
[2018-01-02 04:03] VITALS: BP 154/67
[2018-01-02 06:28] LABS: BASOPHIL (%) 0.1 % (0-1); EOSINOPHIL (%) 0.5 % (0-5); HEMATOCRIT 28.1 % (38.0-50.0); HEMOGLOBIN 9.1 G/DL (12.5-16.6); IMMATURE GRANULOCYTE (%) 0.5 % (0.0-0.7); LYMPHOCYTE (%) 7.4 % (15-42); LYMPHOCYTE COUNT 0.6 K/uL (1.0-2.8); MCH 31.6 PG (29.0-34.0); MCHC 32.4 G/DL (30.0-36.0); MCV 97.6 FL (86-99); MONOCYTE (%) 13.2 % (3-12); MONOCYTE COUNT 1.1 K/uL (0-0.8); NEUTROPHIL (%) 78.3 % (45-76); NEUTROPHIL COUNT 6.8 K/uL (1.8-6.4); PLATELET COUNT 205 K/uL (156-360); RBC DIS.WIDTH-CV 14.3 % (11.8-14.6); RBC DIS.WIDTH-SD 51.2 % (39-53); RED BLOOD COUNT 2.88 M/uL (4.00-5.50); WHITE BLOOD COUNT 8.6 K/uL (4.1-10.2)
[2018-01-02 06:34] LABS: INTER. NORMALIZED RATIO 2.9
[2018-01-02 06:45] VITALS: BP 140/63
[2018-01-02 08:14] LABS: FOLIC ACID (FOLATE) 9.2 NG/ML (5.0-22.0)
[2018-01-02 08:18] LABS: CHLORIDE 112 MEQ/L (99-109); CREATININE 2.3 MG/DL (0.6-1.3); FERRITIN 34 NG/ML (22-322); GFR ESTIMATE (CALCULATED) 29 mL/min/ (58.99-99999); GLUCOSE 99 mg/dL (70-99); POTASSIUM 4.4 MEQ/L (3.7-5.4); SODIUM 144 MEQ/L (136-147); UREA NITROGEN (BUN) 71 mg/dL (9-23)
[2018-01-02 11:00] VITALS: BP 163/70
[2018-01-02 15:30] VITALS: BP 140/64
[2018-01-02 23:46] VITALS: BP 139/62
[2018-01-03 06:10] LABS: BASOPHIL (%) 0 % (0-1); EOSINOPHIL (%) 0 % (0-5); HEMATOCRIT 29.1 % (38.0-50.0); HEMOGLOBIN 9.2 G/DL (12.5-16.6); IMMATURE GRANULOCYTE (%) 0.6 % (0.0-0.7); LYMPHOCYTE (%) 6.8 % (15-42); LYMPHOCYTE COUNT 0.4 K/uL (1.0-2.8); MCHC 31.6 G/DL (30.0-36.0); MONOCYTE (%) 3.9 % (3-12); MONOCYTE COUNT 0.2 K/uL (0-0.8); NEUTROPHIL (%) 88.7 % (45-76); NEUTROPHIL COUNT 4.7 K/uL (1.8-6.4); PLATELET COUNT 190 K/uL (156-360); RBC DIS.WIDTH-CV 14.2 % (11.8-14.6); RBC DIS.WIDTH-SD 51.1 % (39-53); RED BLOOD COUNT 2.97 M/uL (4.00-5.50); WHITE BLOOD COUNT 5.3 K/uL (4.1-10.2)
[2018-01-03 06:47] LABS: INTER. NORMALIZED RATIO 3.2
[2018-01-03 08:07] VITALS: BP 177/84
[2018-01-03 09:36] LABS: CHLORIDE 114 MEQ/L (99-109); CREATININE 2.2 MG/DL (0.6-1.3); GFR ESTIMATE (CALCULATED) 30 mL/min/ (58.99-99999); GLUCOSE 135 mg/dL (70-99); SODIUM 144 MEQ/L (136-147); UREA NITROGEN (BUN) 74 mg/dL (9-23)
[2018-01-03 09:40] LABS: POTASSIUM 5.4 MEQ/L (3.7-5.4)
[2018-01-03 11:00] VITALS: BP 136/71
[2018-01-03 15:00] VITALS: BP 132/73
[2018-01-03 19:21] VITALS: BP 167/73
[2018-01-03 23:46] VITALS: BP 173/79
[2018-01-04] VITALS (11 sets, daily range): BP systolic 134–167; BP diastolic 65–77
[2018-01-04 06:03] LABS: BASOPHIL (%) 0 % (0-1); EOSINOPHIL (%) 0 % (0-5); HEMATOCRIT 30.1 % (38.0-50.0); HEMOGLOBIN 9.3 G/DL (12.5-16.6); IMMATURE GRANULOCYTE (%) 0.3 % (0.0-0.7); LYMPHOCYTE (%) 5.1 % (15-42); LYMPHOCYTE COUNT 0.5 K/uL (1.0-2.8); MCH 30.4 PG (29.0-34.0); MCHC 30.9 G/DL (30.0-36.0); MCV 98.4 FL (86-99); MONOCYTE (%) 7.2 % (3-12); MONOCYTE COUNT 0.7 K/uL (0-0.8); NEUTROPHIL (%) 87.4 % (45-76); PLATELET COUNT 235 K/uL (156-360); RBC DIS.WIDTH-CV 14.2 % (11.8-14.6); RBC DIS.WIDTH-SD 50.9 % (39-53); RED BLOOD COUNT 3.06 M/uL (4.00-5.50); WHITE BLOOD COUNT 9.2 K/uL (4.1-10.2)
[2018-01-04 06:26] LABS: CHLORIDE 114 MEQ/L (99-109); CREATININE 2.2 MG/DL (0.6-1.3); GFR ESTIMATE (CALCULATED) 30 mL/min/ (58.99-99999); GLUCOSE 124 mg/dL (70-99); POTASSIUM 5.4 MEQ/L (3.7-5.4); SODIUM 146 MEQ/L (136-147); UREA NITROGEN (BUN) 81 mg/dL (9-23)
[2018-01-04 09:30] LABS: STOOL OCCULT BLD 1ST SPECIMEN POSITIVE
[2018-01-04 11:02] LABS: STOOL OCCULT BLD 1ST SPECIMEN POSITIVE
[2018-01-04 13:56] LABS: HEMATOCRIT 29.6 % (38.0-50.0); MCV 98.7 FL (86-99)
[2018-01-04 18:12] LABS: HEMATOCRIT 28.2 % (38.0-50.0); HEMOGLOBIN 8.7 G/DL (12.5-16.6); MCV 98.6 FL (86-99)
[2018-01-04 18:35] LABS: CHLORIDE 114 MEQ/L (99-109); GFR ESTIMATE (CALCULATED) 34 mL/min/ (58.99-99999); GLUCOSE 162 mg/dL (70-99); POTASSIUM 5.1 MEQ/L (3.7-5.4); SODIUM 142 MEQ/L (136-147); UREA NITROGEN (BUN) 79 mg/dL (9-23)
[2018-01-04 19:24] LABS: C DIFF TOXIN NEGATIVE (NEGATIVE)
[2018-01-05] VITALS (11 sets, daily range): BP systolic 127–190; BP diastolic 62–91
[2018-01-05 05:17] LABS: HEMOGLOBIN 7.8 G/DL (12.5-16.6); MCV 97.3 FL (86-99)
[2018-01-05 05:18] LABS: HEMATOCRIT 25.7 % (38.0-50.0); MCV 97.3 FL (86-99)
[2018-01-05 05:19] LABS: BASOPHIL (%) 0 % (0-1); EOSINOPHIL (%) 0 % (0-5); HEMATOCRIT 25.7 % (38.0-50.0); IMMATURE GRANULOCYTE (%) 0.6 % (0.0-0.7); LYMPHOCYTE (%) 6.2 % (15-42); LYMPHOCYTE COUNT 0.4 K/uL (1.0-2.8); MCH 30.3 PG (29.0-34.0); MCHC 31.1 G/DL (30.0-36.0); MCV 97.3 FL (86-99); MONOCYTE (%) 6.2 % (3-12); MONOCYTE COUNT 0.4 K/uL (0-0.8); NEUTROPHIL COUNT 5.6 K/uL (1.8-6.4); PLATELET COUNT 199 K/uL (156-360); RBC DIS.WIDTH-CV 14.2 % (11.8-14.6); RBC DIS.WIDTH-SD 50.1 % (39-53); RED BLOOD COUNT 2.64 M/uL (4.00-5.50); WHITE BLOOD COUNT 6.4 K/uL (4.1-10.2)
[2018-01-05 05:46] LABS: INTER. NORMALIZED RATIO 1.7
[2018-01-05 05:59] LABS: CHLORIDE 115 MEQ/L (99-109); CREATININE 1.8 MG/DL (0.6-1.3); GFR ESTIMATE (CALCULATED) 38 mL/min/ (58.99-99999); GLUCOSE 124 mg/dL (70-99); POTASSIUM 4.6 MEQ/L (3.7-5.4); SODIUM 147 MEQ/L (136-147); UREA NITROGEN (BUN) 78 mg/dL (9-23)
[2018-01-05 12:33] LABS: HEMATOCRIT 30.5 % (38.0-50.0); HEMOGLOBIN 9.5 G/DL (12.5-16.6); MCV 97.4 FL (86-99)
[2018-01-05 16:08] LABS: HEMATOCRIT 29.7 % (38.0-50.0); HEMOGLOBIN 9.6 G/DL (12.5-16.6); MCV 95.5 FL (86-99)
[2018-01-05 22:10] LABS: HEMATOCRIT 31.7 % (38.0-50.0); HEMOGLOBIN 10.2 G/DL (12.5-16.6); MCV 94.3 FL (86-99)
[2018-01-06 03:21] VITALS: BP 160/66
[2018-01-06 06:20] LABS: BASOPHIL (%) 0.1 % (0-1); EOSINOPHIL (%) 0 % (0-5); HEMATOCRIT 29.7 % (38.0-50.0); HEMOGLOBIN 9.2 G/DL (12.5-16.6); IMMATURE GRANULOCYTE (%) 0.4 % (0.0-0.7); LYMPHOCYTE (%) 7.2 % (15-42); LYMPHOCYTE COUNT 0.6 K/uL (1.0-2.8); MCH 29.4 PG (29.0-34.0); MCV 94.9 FL (86-99); MONOCYTE COUNT 0.8 K/uL (0-0.8); NEUTROPHIL (%) 82.3 % (45-76); NEUTROPHIL COUNT 6.6 K/uL (1.8-6.4); PLATELET COUNT 198 K/uL (156-360); RBC DIS.WIDTH-CV 15.2 % (11.8-14.6); RBC DIS.WIDTH-SD 53.3 % (39-53); RED BLOOD COUNT 3.13 M/uL (4.00-5.50)
[2018-01-06 06:26] LABS: INTER. NORMALIZED RATIO 1.2
[2018-01-06 06:40] LABS: ALBUMIN 3.5 G/DL (3.2-4.8); CHLORIDE 114 MEQ/L (99-109); CREATININE 1.7 MG/DL (0.6-1.3); GFR ESTIMATE (CALCULATED) 41 mL/min/ (58.99-99999); POTASSIUM 4.2 MEQ/L (3.7-5.4); SODIUM 146 MEQ/L (136-147); UREA NITROGEN (BUN) 70 mg/dL (9-23)
[2018-01-06 06:49] LABS: GLUCOSE 90 mg/dL (70-99)
[2018-01-06 07:30] VITALS: BP 152/78
[2018-01-06 08:07] VITALS: BP 160/74
[2018-01-06 11:37] VITALS: BP 142/66
[2018-01-06 15:00] VITALS: BP 149/84
[2018-01-06 23:59] VITALS: BP 154/78
[2018-01-07 06:52] LABS: BASOPHIL (%) 0 % (0-1); EOSINOPHIL (%) 0 % (0-5); HEMATOCRIT 29.7 % (38.0-50.0); HEMOGLOBIN 9.3 G/DL (12.5-16.6); IMMATURE GRANULOCYTE (%) 0.8 % (0.0-0.7); LYMPHOCYTE (%) 10.3 % (15-42); LYMPHOCYTE COUNT 0.7 K/uL (1.0-2.8); MCH 29.5 PG (29.0-34.0); MCHC 31.3 G/DL (30.0-36.0); MCV 94.3 FL (86-99); MONOCYTE (%) 12.8 % (3-12); MONOCYTE COUNT 0.8 K/uL (0-0.8); NEUTROPHIL (%) 76.1 % (45-76); PLATELET COUNT 182 K/uL (156-360); RBC DIS.WIDTH-CV 14.9 % (11.8-14.6); RBC DIS.WIDTH-SD 51.6 % (39-53); RED BLOOD COUNT 3.15 M/uL (4.00-5.50); WHITE BLOOD COUNT 6.5 K/uL (4.1-10.2)
[2018-01-07 07:15] LABS: CHLORIDE 112 MEQ/L (99-109); CREATININE 1.6 MG/DL (0.6-1.3); GFR ESTIMATE (CALCULATED) 44 mL/min/ (58.99-99999); GLUCOSE 80 mg/dL (70-99); POTASSIUM 4.1 MEQ/L (3.7-5.4); SODIUM 143 MEQ/L (136-147); UREA NITROGEN (BUN) 52 mg/dL (9-23)
[2018-01-07 07:21] VITALS: BP 158/68
[2018-01-07 11:17] VITALS: BP 156/58
[2018-01-07] MEDS ORDERED: LEVAQUIN750 MG PO (15:37)
[2018-01-07] MEDS ORDERED: ARANESP100 MCG/0. SC (16:01)
[2018-01-07] MEDS ORDERED: FLUCONAZOLE100 MG PO (16:01)
[2018-01-07 16:25] VITALS: BP 178/74
== END 2018-01-07 19:55 | DRG 193 ==
LOC: EME 10:21 → EDOF 13:37 → 5EAST 13:37 → ENRESERV 13:39 → 5EAST 15:44
PROVIDERS: Emergency Medicine; Hospitalist; Internal Medicine; Internal Medicine Gastroenterology; Internal Medicine Hematology & Oncology; Internal Medicine Pulmonary Disease; Specialist
DX: J18.9 Pneumonia, unspecified organism (principal); J96.01 Acute respiratory failure with hypoxia; J44.1 Chronic obstructive pulmonary disease with (acute) exacerbation; K92.2 Gastrointestinal hemorrhage, unspecified; J44.0 Chronic obstructive pulmonary disease with (acute) lower respiratory infection; I48.2 Chronic atrial fibrillation; N18.4 Chronic kidney disease, stage 4 (severe); I13.0 Hypertensive heart and chronic kidney disease with heart failure and stage 1 through stage 4 chronic kidney disease, or unspecified chronic kidney disease; B37.81 Candidal esophagitis; D63.1 Anemia in chronic kidney disease; K55.20 Angiodysplasia of colon without hemorrhage; K64.8 Other hemorrhoids; I42.9 Cardiomyopathy, unspecified; Z93.6 Other artificial openings of urinary tract status; J98.01 Acute bronchospasm; F41.9 Anxiety disorder, unspecified; I45.10 Unspecified right bundle-branch block; R79.1 Abnormal coagulation profile; K63.5 Polyp of colon; D12.3 Benign neoplasm of transverse colon; D50.0 Iron deficiency anemia secondary to blood loss (chronic); I50.9 Heart failure, unspecified; F29 Unspecified psychosis not due to a substance or known physiological condition; I27.20 Pulmonary hypertension, unspecified; Z85.51 Personal history of malignant neoplasm of bladder; I25.2 Old myocardial infarction; Z87.891 Personal history of nicotine dependence; Z79.01 Long term (current) use of anticoagulants; Z85.038 Personal history of other malignant neoplasm of large intestine; Z80.0 Family history of malignant neoplasm of digestive organs; Z82.49 Family history of ischemic heart disease and other diseases of the circulatory system
CPT/HCPCS: 36600; 71045; 71046; 80048; 80048 91; 80069; 82272; 82607; 82728; 82746; 82803; 83605; 83880; 84484; 85014; 85018; 85025; 85027; 85046; 85610; 85730; 86850; 86900; 86901; 86920; 87040; 87070; 87205; 87449; 87493; 88305; 88342 TC; 93005; 94640; 94640 76; 94760; 94799; 97530 GO; 97530 GP; 99281; 99284; J0295; J0456; J0696; J0881; J1100; J1940; J1956; J2060; J2270; J2405; J2765; J7030; J7050; J7512; P9016; P9017